=== PATIENT | male | born 1960 | race Caucasian/White ===

== ENCOUNTER → 2020-06-22 | Outpatient (CLI) | payer OTHER ==
--- NOTE | 2020-06-22 20:01 | CONS ---
CONSULTATION REASON FOR CONSULTATION: Sleep apnea. This is a 60-year-old male patient who is seeing me in consultation for sleep apnea. The patient was diagnosed as having sleep apnea back in 2005. At that time he had a sleep study that was done in [place], [place]. He was given a CPAP unit which he used for a short period of time, and he stopped using the machine from that point on. The patient's machine is a ResMed S8 unit which is set at a pressure of 6 cm of water. He was given also various forms of nasal masks, including nasal pillow. For now, the patient is not receiving any treatment. He is very tired, fatigued and sleepy. He snores. He quits breathing and he is waking up with a dry mouth. He goes to bed around 8 p.m., wakes up 3:30 a.m. in the morning. He lives in [place] and drives back and forth to [place], where he works. The patient denies having fallen asleep while driving. He has never been involved in a motor vehicle accident because of feeling drowsy or sleepy. His [place] score is 18. No sleep paralysis. No hallucinations. No cataplexy. No substance abuse. No head trauma. No other medical problems or comorbidities. PAST MEDICAL HISTORY: Obstructive sleep apnea and osteoarthritis. PAST SURGICAL HISTORY: Past surgical history includes bilateral knee surgeries/arthroscopies. DRUG ALLERGIES: NOT KNOWN. MEDICATIONS: None. SOCIAL HISTORY: He smokes half a pack of cigarettes a day. No history of alcoholism. No history of IV drugs. He drinks 4 cups of coffee in the morning. FAMILY HISTORY: Mother has hypertension. Father had COPD. Brother has obstructive sleep apnea. REVIEW OF SYSTEMS: Fourteen-point review of systems was done, and the positive findings are all mentioned above in the history of present illness. PHYSICAL EXAMINATION: BP is 162/103, which is elevated, with a pulse of 77, respirations 16, temperature 97.2, saturation 97% on room air. Height is 6 feet 0 inches and weight is 212 and BMI 28.8 with an [place] score of 18. Neck size is 16-1/2 inches. GENERAL APPEARANCE: Calm, comfortable. HEAD: Atraumatic, normocephalic. NECK: Supple. Mallampati class I to II. No goiter or neck masses. Small tonsils. Uvula is normal. LUNGS: Clear to auscultation. HEART: Heart sounds are regular rate and rhythm. Normal S1, S2. No S3, S4. No murmurs. ABDOMEN: Soft, nontender. No organomegaly. EXTREMITIES: No edema. No cyanosis or clubbing. NEUROLOGIC: Awake and alert. There is no focal neurological deficit. PSYCHIATRIC: Negative for anxiety or depression. IMPRESSION: 1. Chronic hypersomnia with an [place] score of 18. 2. Previous history of obstructive sleep apnea. Exact diagnosis severity is not known to me at this point. The diagnosis was established back in 2016 by an outside sleep center and the patient was given a CPAP unit which he used briefly and he quit treatment. That machine is a ResMed S8 unit which is set at a pressure of 6 cm of water. 3. Hypertension. Blood pressure on today's evaluation is quite elevated. 4. Smoker. PLAN: 1. Will set up this patient for home sleep study testing to evaluate for sleep breathing disorder/sleep apnea. 2. Encourage weight loss. 3. Implement good sleep hygiene measures. 4. Smoking cessation. 5. Blood pressure monitoring. The patient was made aware that his blood pressure today is elevated and this needs to be monitored very closely. 6. Will review the results of his sleep study once available and make further recommendations if further treatment is needed. MMODL / IJN: [id number] /
== END | disposition home or self-care (01) ==
LOC: SLEEP 15:19
PROVIDERS: ATTEND Internal Medicine Critical Care Medicine
DX: G47.10 Hypersomnia, unspecified (principal); I10 Essential (primary) hypertension; F17.200 Nicotine dependence, unspecified, uncomplicated; Z99.89 Dependence on other enabling machines and devices; Z86.59 Personal history of other mental and behavioral disorders
CPT/HCPCS: 99211

== ENCOUNTER → 2020-09-08 | Outpatient (CLI) | payer OTHER ==
--- NOTE | 2020-09-08 18:46 | XR ---
EXAMINATION TYPE: XR chest 2V DATE OF EXAM: 09/08/2020 COMPARISON: NONE HISTORY: Crackles. Pain. TECHNIQUE: 2 views FINDINGS: There is no heart failure nor confluent pneumonic infiltrate. Costophrenic angles are clear . There are no hilar masses. Bony thorax is intact. IMPRESSION: No active cardiopulmonary disease. Normal heart. IMPRESSION:
== END | disposition home or self-care (01) ==
LOC: RADXRMAIN 18:00
PROVIDERS: ATTEND Family Medicine
DX: R07.9 Chest pain, unspecified (principal); R09.89 Other specified symptoms and signs involving the circulatory and respiratory systems
CPT/HCPCS: 71046

== ENCOUNTER → 2021-01-18 | Outpatient (CLI) | payer OTHER ==
--- NOTE | 2021-01-18 16:20 | PN ---
PROGRESS NOTE Sharath is 60, coming in for a compliancy check. I diagnosed the patient with severe obstructive sleep apnea and his AHI was 54. He is known to have obstructive sleep apnea. He was utilizing an older-generation ResMed S8 unit. I offered him a ResMed APAP unit at a pressure minimum of 5, maximum of 15, and on today's compliance data, the patient is coming in for followup. Over the past 70 days, the patient has utilized his machine 60 out of the past 70 days and he missed 10 days because of camping. While on treatment, his AHI is down to 2.4. The patient is averaging around 6 hours of CPAP use per night. Treatment is successful. He is feeling great. He is loving his machine. Sleep quality is improved. He is seeking a nose mask and I offered him an AirFit M30i small-sized nose piece to try and alternate with his full-face mask. His weight has been stable. No other major comorbidities. Sleep quality improved. He is awake and alert during the day. He is feeling much better, less drowsy and less sleepy. REVIEW OF SYSTEMS: Fourteen-point review of systems was done, and the positive findings are all mentioned above in the history of present illness. PHYSICAL EXAMINATION: BP is 150/93, pulse 66, respirations 20, temperature 97.1, saturation 99% on room air. Weight is 213. Hudson score is at 3. GENERAL APPEARANCE: Calm, comfortable. HEAD: Atraumatic, normocephalic. NECK: Supple. No JVD. No goiter or neck masses. LUNGS: Diminished breath sounds. Otherwise clear. HEART: Heart sounds are regular rate and rhythm. Normal S1, S2. No S3, S4. No murmurs. ABDOMEN: Soft, nontender. No organomegaly. EXTREMITIES: No edema. No cyanosis or clubbing. IMPRESSION: 1. Severe obstructive sleep apnea, AHI of 54, currently on APAP with successful treatment. 2. Hypersomnia, recovered. 3. Osteoarthritis. 4. Hypertension. PLAN: 1. Continue APAP therapy. 2. Offer the patient an AirFit N30i nose piece. 3. Encourage further weight loss. 4. The patient is benefitting from treatment. The patient is reporting improvement in sleep quality and no major hypersomnia or sleepiness. On today's evaluation, Hudson score is down to 3. Encourage using the CPAP unit. Compliance is adequate. Sleep hygiene measures are adequate. Will see me back in a year's time in followup. MMODL / IJN: [id number] /
== END | disposition home or self-care (01) ==
LOC: SLEEP 14:38
PROVIDERS: ATTEND Internal Medicine Critical Care Medicine
DX: G47.33 Obstructive sleep apnea (adult) (pediatric) (principal); G47.10 Hypersomnia, unspecified; M19.90 Unspecified osteoarthritis, unspecified site; I10 Essential (primary) hypertension